=== PATIENT | female | born 1970 | race American Indian/Alaskan Native ===

== ENCOUNTER 2022-02-05 11:20 | Emergency (ER) | payer OTHER ==
--- NOTE | 2022-02-05 13:11 | Emergency Department Report ---
ED General Adult HPI - General Chief complaint: Urogenital-Female Stated complaint: URINE BOWEL Time Seen by Provider: 02/05/22 13:03 Source: patient Mode of arrival: Ambulatory Limitations: No Limitations - History of Present Illness Initial comments: 51-year-old female with a past medical history of endometriosis presents to the ER today complaining of hematuria and rectal bleeding. Patient states that last night when she wiped after urinating she noticed blood on the tissue which was pinkish in color. She states that this morning after having a bowel movement and she wiped she noticed same pink blood on the tissue. She has continued to have pink blood on tissue when she urinated again today. She states that she has not noticed any blood in the toilet bowl when she wiped about a bowel movement nor was any blood on nor in the stool. She states that she has chronic abdominal pain/cramps from endometriosis but this has not gotten any worse since the bleeding. She denies any dysuria, frequency, diarrhea, constipation, straining with bowel movement, mucus in her stool, fever or chills. She states that she is never had a colonoscopy. She takes natural supplements every day but is not on any prescribed meds including blood thinners. She is status post tubal ligation but no other abdominal surgeries. She states that her menstrual cycle just ended. MD Complaint: Blood in urine. Rectal bleeding -: Last night - Related Data Allergies Allergy/AdvReac Type Severity Reaction Status Date / Time shellfish derived Allergy Anaphylaxis Verified 02/05/22 12:00 ED Review of Systems ROS: Stated complaint: URINE BOWEL Other details as noted in HPI Comment: All other systems reviewed and negative Constitutional: denies: chills, diaphoresis, fever, malaise, weakness Eyes: denies: eye pain, eye discharge, vision change ENT: denies: ear pain, throat pain, dental pain, hearing loss, congestion Respiratory: denies: shortness of breath, SOB with exertion, SOB at rest Cardiovascular: denies: chest pain, palpitations Gastrointestinal: abdominal pain (Chronic [place]ary to endometriosis), hematemesis. denies: nausea, vomiting, diarrhea, constipation, melena, hematochezia Genitourinary: hematuria. denies: urgency, dysuria, frequency, discharge, abnormal menses, dyspareunia Musculoskeletal: denies: back pain, joint swelling, arthralgia Skin: denies: rash, lesions, change in color, change in hair/nails, pruritus Neurological: denies: headache, weakness, numbness, paresthesias, confusion, abnormal gait, vertigo Psychiatric: denies: anxiety, depression, auditory hallucinations, visual hallucinations, homicidal thoughts, suicidal thoughts ED Past Medical Hx - Past Medical History Previous Medical History?: Yes Additional medical history: Endometriosis - Surgical History Past Surgical History?: Yes Additional Surgical History: Tubaligation - Social History Smoking Status: Never Smoker Substance Use Type: Prescribed ED Physical Exam - General Limitations: No Limitations General appearance: alert, in no apparent distress - Head Head exam: Present: atraumatic, normocephalic, normal inspection - Eye Eye exam: Present: normal appearance, PERRL, EOMI Pupils: Present: normal accommodation - Neck Neck exam: Present: normal inspection, full ROM. Absent: meningismus - Respiratory Respiratory exam: Present: normal lung sounds bilaterally. Absent: respiratory distress, wheezes, rales, rhonchi - Cardiovascular Cardiovascular Exam: Present: regular rate, normal rhythm, normal heart sounds - GI/Abdominal GI/Abdominal exam: Present: soft. Absent: distended, tenderness, guarding, rebound - Rectal Rectal exam: Present: normal inspection, normal rectal tone. Absent: bloody stool, fecal impaction, hemorrhoids, tenderness - Neurological Exam Neurological exam: Present: alert, oriented X3, CN II-XII intact, normal gait - Psychiatric Psychiatric exam: Present: normal affect, normal mood ED Course Vital Signs 02/05/22 12:00 Temperature 98.2 F Pulse Rate 73 Respiratory 20 Rate Blood Pressure 126/83 O2 Sat by Pulse 97 Oximetry ED Medical Decision Making - Lab Data Result diagrams: 02/05/22 13:31 02/05/22 13:31 Laboratory Tests 02/05/22 02/05/22 02/05/22 13:14 13:31 13:31 WBC 12.9 H RBC 4.74 Hgb 14.2 Hct 42.5 MCV 90 MCH 30 MCHC 34 RDW 12.7 L Plt Count 246 Lymph % (Auto) 28.5 Humphreys % (Auto) 3.8 Eos % (Auto) 2.2 Baso % (Auto) 0.8 Lymph # (Auto) 3.6 Humphreys # (Auto) 0.5 Eos # (Auto) 0.3 Baso # (Auto) 0.1 Seg Neutrophils % 64.7 Seg Neutrophils # 8.4 H HCG, Qual Negative Urine Color Straw Urine Turbidity Clear Urine pH 7.0 Ur Specific [place] 1.004 Urine Protein <15 mg/dl Urine Glucose (UA) Neg Urine Ketones Neg Urine Blood Mod Urine Nitrite Neg Urine Bilirubin Neg Urine Urobilinogen < 2.0 Ur Leukocyte Esterase Neg Urine WBC (Auto) 1.0 Urine RBC (Auto) 3.0 U Epithel Cells (Auto) 2.0 Urine Bacteria (Auto) 1+ - Radiology Data Radiology results: report reviewed - Medical Decision Making 51-year-old female with a past medical history of endometriosis presents to the ER today complaining of hematuria and rectal bleeding. Patient states that last night when she wiped after urinating she noticed blood on the tissue which was pinkish in color. She states that this morning after having a bowel movement and she wiped she noticed same pink blood on the tissue. She has continued to have pink blood on tissue when she urinated again today. She states that she has not noticed any blood in the toilet bowl when she wiped about a bowel movement nor was any blood on nor in the stool. She states that she has chronic abdominal pain/cramps from endometriosis but this has not gotten any worse since the bleeding. She denies any dysuria, frequency, diarrhea, constipation, straining with bowel movement, mucus in her stool, fever or chills. She states that she is never had a colonoscopy. She takes natural supplements every day but is not on any prescribed meds including blood thinners. She is status post tubal ligation but no other abdominal surgeries. She states that her menstrual cycle just ended. 1531: CBC shows mild leukocytosis. H&H and platelet count normal. CMP unremarkable. UA shows moderate blood but only 3 RBC and no signs of infection. Hemocult was negative. rectal exam was normal. Patient has soft non tender abdomen. She is non toxic or ill appearing. She appears well hydrated and her gait is normal. At this time I do no see an indication for additional testing, specialist consult or admission. Discussed results with patient. Recommend follow up with PCP for referral to GI and urologist especially if her symptoms persist. Patient expressed understanding and agreed with plan. Patient was stable at time of discharge. Critical care attestation.: If time is entered above; I have spent that time in minutes in the direct care of this critically ill patient, excluding procedure time. ED Disposition Clinical Impression: Hematuria, Rectal bleeding Disposition: 01 HOME / SELF CARE / HOMELESS Is pt being admited?: No Does the pt Need Aspirin: No Condition: Stable Instructions: Rectal Bleeding, [id number], Hematuria, Adult Additional Instructions: I recommend following up with your Primary Care physician next week for further eval and possible referral to [facility] and Urologist if symptoms persist. Return to ED if worse. Referrals: KAVON POZO MD [Primary Care Provider] - 3-5 Days [facility] [Provider Group] - 3-5 Days Time of Disposition: 14:57
[2022-02-05 13:58] LABS: Bacteria,Urine 1+ /HPF (Negative); Bilirubin,Urine NEG (Negative); Blood,Urine MOD (Negative); Color,Urine Straw (Yellow); Protein,Urine <15 mg/dL mg/dL (Negative); Urobilinogen,Urine < 2.0 mg/dL (<2.0)
[2022-02-05 14:34] LABS: Basophils % (Auto) 0.8 % (0.0-1.8); Eosinophils % (Auto) 2.2 % (0.0-4.3); Lymphocytes % (Auto) 28.5 % (13.4-35.0); Monocytes % (Auto) 3.8 % (0.0-7.3)
[2022-02-05 14:41] LABS: Basophils # (Auto) 0.1 K/mm3 (0.0-0.1); Eosinophils # (Auto) 0.3 K/mm3 (0.0-0.4); Hematocrit 42.5 % (30.3-42.9); Hemoglobin 14.2 gm/dl (10.1-14.3); Lymphocytes # (Auto) 3.6 K/mm3 (1.2-5.4); Mean Corpuscular HGB Conc 34 % (30-34); Mean Corpuscular Volume 90 fl (79-97); Monocytes # (Auto) 0.5 K/mm3 (0.0-0.8); Platelet Count 246 K/mm3 (140-440); Red Blood Count 4.74 M/mm3 (3.65-5.03); Red Cell Distribution Width 12.7 % (13.2-15.2)
[2022-02-05 15:09] LABS: Alanine Aminotransferase 17 units/L (7-56); Albumin 4.3 g/dL (3.9-5); BUN/Creatinine Ratio 15; Blood Urea Nitrogen 9 mg/dL (7-17); Calcium 9.6 mg/dL (8.4-10.2); Hemolysis Index 11
[2022-02-05 15:37] VITALS: BP 96/52
== END 2022-02-05 15:37 | disposition home or self-care (01) ==
LOC: ED 11:20
DX: K62.5 Hemorrhage of anus and rectum (principal); R31.9 Hematuria, unspecified; Z98.51 Tubal ligation status; Z91.013 Allergy to seafood
CPT/HCPCS: 36415; 80053; 81001; 82271; 84703; 85025; 99283